=== PATIENT | male | born 1960 | race African-American/Black ===

== ENCOUNTER 2017-07-19 17:47 | Inpatient (IN) | payer MEDICAID ==
[~2017-07-19] VITALS: Ht 177.8 cm; Wt 69.4 kg
[2017-07-19 18:20] LABS: HEMATOCRIT. 38.5 % (42.0-52.0); HEMOGLOBIN. 13.5 g/dL (14.0-18.0); LYMPHOCYTES % 38.1 % (20.0-50.0); MEAN CORPUSCULAR HEMOGLOBIN 32.6 pg (28.0-32.0); MEAN CORPUSCULAR VOLUME 93.1 fL (80.0-94.0); MEAN PLATELET VOLUME 6.8 fl (7.4-10.4); MONOCYTES % 8.3 % (2.0-8.0); NEUTROPHILS % 51.6 % (40.0-76.0); PLATELET 353 x1000/uL (130-400); RED BLOOD CELL COUNT 4.14 mill/uL (4.7-6.1); RED CELL DISTRIBUTION WIDTH 12.5 % (11.6-14.6)
[2017-07-19 18:25] LABS: CHLORIDE 114 mEq/L (98-107)
[2017-07-19 18:29] LABS: PARTIAL THROMBOPLASTIN TIME 29.1 sec (23.4-31.0); PROTHROMBIN TIME 10.7 sec (9.4-11.6)
[2017-07-19] MEDS ORDERED: NITROGLYCERIN 0.4MG TABLET SL SL PRN (20:30)
[2017-07-19] MEDS ORDERED: CLONIDINE 0.1MG TABLET PO PRN (20:30)
[2017-07-19] MEDS ORDERED: DIPHENHYDRAMINE 50MG/ML VIAL IV PRN (20:30)
[2017-07-19] MEDS ORDERED: ONDANSETRON HCL 4MG/2ML VIAL IV PRN (20:30)
[2017-07-19] MEDS ORDERED: MAGNESIUM/ALUMINUM HYDROXIDE/SIMETHICONE 30ML UDC PO PRN (20:30)
[2017-07-19] MEDS ORDERED: LORAZEPAM 0.5MG TABLET PO PRN (20:30)
[2017-07-19] MEDS ORDERED: ACETAMINOPHEN 325MG TABLET PO PRN (20:30)
[2017-07-19] MEDS ORDERED: GUAIFENESIN 200MG/10ML SUGAR FREE UDC PO PRN (20:30)
[2017-07-19] MEDS ORDERED: ZOLPIDEM TARTRATE 5MG TABLET PO PRN (20:30)
[2017-07-19] MEDS ORDERED: IPRATROPIUM/ALBUTEROL 0.5-3(2.5)MG/3ML NEB INH PRN (20:30)
[2017-07-19] MEDS ORDERED: DOCUSATE SODIUM 100MG CAPSULE PO PRN (20:30)
[2017-07-19] MEDS ORDERED: NA PHOS,M-B/NA PHOS,DI-BA ENEMA 118ML PR PRN (20:30)
[2017-07-19] MEDS: DEXT 5%/0.45% NACL 1000ML 1,000 ML IV SCH (20:51)
[2017-07-19 20:52] LABS: CLARITY URINE CLEAR (CLEAR); COLOR URINE YELLOW (YELLOW); KETONES URINE NEGATIVE (NEGATIVE); LEUKOCYTE ESTERASE URINE NEGATIVE (NEGATIVE); NITRITE URINE NEGATIVE (NEGATIVE); OCCULT BLOOD URINE TRACE (NEGATIVE); PH URINE 5.5 (4.5-8.0); PROTEIN URINE NEGATIVE (NEGATIVE); SPECIFIC GRAVITY URINE 1.012 (1.005-1.030); UROBILINOGEN URINE 0.2 E.U./dL (0.2-1.0)
[2017-07-19 21:58] LABS: BASOPHILS % 0.3 % (0.0-2.0); EOSINOPHILS % 0.3 % (0.0-5.0); HEMATOCRIT. 28.6 % (42.0-52.0); HEMOGLOBIN. 9.9 g/dL (14.0-18.0); LYMPHOCYTES % 19.4 % (20.0-50.0); MEAN CORPUSCULAR HEMOGLOBIN 32.9 pg (28.0-32.0); MEAN CORPUSCULAR VOLUME 94.7 fL (80.0-94.0); MEAN PLATELET VOLUME 7.1 fl (7.4-10.4); MONOCYTES % 6.2 % (2.0-8.0); NEUTROPHILS % 73.8 % (40.0-76.0); PLATELET 261 x1000/uL (130-400); RED BLOOD CELL COUNT 3.02 mill/uL (4.7-6.1); RED CELL DISTRIBUTION WIDTH 12.1 % (11.6-14.6)
[2017-07-20] VITALS (19 sets, daily range): BP systolic 110–140; BP diastolic 56–88
[2017-07-20] MEDS ORDERED: CYAN10009 MT (01:54)
[2017-07-20] MEDS ORDERED: MULT-1116 PO (01:54)
[2017-07-20] MEDS ORDERED: MVI, ADULT NO.1 10 ML, FOLIC ACID 1 MG, THIAMINE HCL 100 MG in SODIUM CHLORIDE 0.9% 1,0... IV NR ×4 (02:00)
[2017-07-20] MEDS: PANTOPRAZOLE SODIUM 40 MG/VIAL IV SCH ×2 (06:16→18:18)
[2017-07-20] MEDS: DEXT 5%/0.45% NACL 1000ML 1,000 ML IV SCH ×2 (06:17→16:52)
[2017-07-20 08:33] LABS: BASOPHILS % 0.3 % (0.0-2.0); EOSINOPHILS % 0.6 % (0.0-5.0); HEMOGLOBIN. 7.1 g/dL (14.0-18.0); LYMPHOCYTES % 31.1 % (20.0-50.0); MEAN CORPUSCULAR HEMOGLOBIN 32.6 pg (28.0-32.0); MEAN CORPUSCULAR VOLUME 94.3 fL (80.0-94.0); MEAN PLATELET VOLUME 7.4 fl (7.4-10.4); PLATELET 231 x1000/uL (130-400); RED BLOOD CELL COUNT 2.17 mill/uL (4.7-6.1); RED CELL DISTRIBUTION WIDTH 12.2 % (11.6-14.6)
[2017-07-20 08:36] LABS: HEMATOCRIT. 20.4 % (42.0-52.0)
[2017-07-20 08:38] LABS: CHLORIDE 117 mEq/L (98-107)
[2017-07-20] MEDS: METOPROLOL TARTRATE 25MG TABLET PO SCH ×2 (10:57→20:38)
[2017-07-20] MEDS ORDERED: SORBITOL 70% SOLN 30ML PO SCH (16:00)
[2017-07-20] MEDS ORDERED: SORBITOL 70% SOLN 30ML PO NR (20:00)
[2017-07-20 20:45] LABS: HEMATOCRIT 26.5 % (42.0-52.0); HEMOGLOBIN 9.5 g/dL (14.0-18.0)
[2017-07-21] VITALS: BP 133/68
[2017-07-21] MEDS: DEXT 5%/0.45% NACL 1000ML 1,000 ML IV SCH ×2 (03:46→17:12)
[2017-07-21 04:00] VITALS: BP 147/65
[2017-07-21] MEDS: PANTOPRAZOLE SODIUM 40 MG/VIAL IV SCH ×2 (05:59→17:12)
[2017-07-21] MEDS: METOPROLOL TARTRATE 25MG TABLET PO SCH ×2 (08:52→21:29)
[2017-07-21] MEDS ORDERED: BACTERIOSTATIC SODIUM CHLORIDE 0.9% 30ML VIAL IJ ONE (10:51)
[2017-07-21] MEDS ORDERED: FENTANYL CITRATE/PF 50MCG/ML 2ML VIAL IV PRN (17:39)
[2017-07-21] MEDS ORDERED: MIDAZOLAM HCL 5 MG/5 ML VIAL ONE (17:40)
[2017-07-21] MEDS ORDERED: FENTANYL CITRATE/PF 50MCG/ML 2ML VIAL ONE (17:40)
[2017-07-21] MEDS ORDERED: MIDAZOLAM HCL 5 MG/5 ML VIAL IV PRN (17:40)
[2017-07-21 20:00] VITALS: BP 128/68
[2017-07-22] MEDS: DEXT 5%/0.45% NACL 1000ML 1,000 ML IV SCH (02:16)
[2017-07-22 02:33] VITALS: BP 120/62
[2017-07-22 05:00] VITALS: BP 132/68
[2017-07-22 08:28] VITALS: BP 130/68
[2017-07-22] MEDS: PANTOPRAZOLE SODIUM 40 MG/VIAL IV SCH (09:38)
[2017-07-22] MEDS: METOPROLOL TARTRATE 25MG TABLET PO SCH (09:39)
[2017-07-22 12:28] VITALS: BP 121/64
[2017-07-22 13:46] VITALS: BP 121/75
== END 2017-07-22 14:22 | disposition home or self-care (01) | DRG 244 ==
LOC: ER 19:39 → 5WST 22:12 → ENRESERV 22:45
PROVIDERS: ADMIT Internal Medicine; ATTEND Internal Medicine
PROC: 30233N1 Transfusion of Nonautologous Red Blood Cells into Peripheral Vein, Percutaneous Approach (ICD-10-PCS; 2017-07-20)
PROC: 0DJD8ZZ Inspection of Lower Intestinal Tract, Via Natural or Artificial Opening Endoscopic (ICD-10-PCS; principal; 2017-07-21 16:00)
DX: K57.31 Diverticulosis of large intestine without perforation or abscess with bleeding (principal); E87.0 Hyperosmolality and hypernatremia; D62 Acute posthemorrhagic anemia; F10.10 Alcohol abuse, uncomplicated; B18.2 Chronic viral hepatitis C; K64.8 Other hemorrhoids; F17.210 Nicotine dependence, cigarettes, uncomplicated; Z86.711 Personal history of pulmonary embolism
CPT/HCPCS: 36415; 78278; 80053; 81003; 83036; 83690; 85014; 85018; 85025; 85610; 85730; 86850; 86900; 86920; 93970; 99285; A6261; A9560; C9113; G0482; J2250; J3010; J3411; J3490; J7030; J7040; P9016